=== PATIENT | female | born 1985 | race Hispanic/Latino ===

== ENCOUNTER 2019-03-08 11:32 | Emergency (ER) | payer MEDICAID, OTHER | END 2019-03-08 12:04 | disposition home or self-care (01) | LOC: EDH 11:32 | DX: G44.209 Tension-type headache, unspecified, not intractable (principal); R59.0 Localized enlarged lymph nodes; R20.2 Paresthesia of skin; Z87.891 Personal history of nicotine dependence | CPT/HCPCS: 99281 ==